=== PATIENT | female | born 1960 | race Two or more races ===

== ENCOUNTER 2018-06-13 11:39 | Emergency (ER) | payer MEDICAID ==
[~2018-06-13] VITALS: Ht 165.1 cm; Wt 71.2 kg
[2018-06-13] MEDS ORDERED: BENAZEPRIL HCL10 MG ORAL (11:57)
[2018-06-13] MEDS ORDERED: Simethicone 80mg tab ORAL ONE (12:15)
[2018-06-13] MEDS ORDERED: Acetaminophen 500mg (ES) tab ORAL ONE (12:15)
--- NOTE | 2018-06-13 12:20 | Emergency Room Report ---
History of Present Illness General Chief Complaint: Back Pain-No Injury Source: Patient Present Illness HPI 58-year-old female patient presents to ER complaining of left-sided lower back pain that radiates to her suprapubic abdomen and left thigh for the past 2 weeks. Reports similar symptoms in the past for the past 3 years, states has had previous workup and x-rays done, believes the results were negative however never got told the results from her physician at that time. Reports frequency and urgency and mild dysuria during this time. Denies hematuria, vaginal discharge. Denies acute injury or trauma. Denies bowel or bladder incontinence. denies blood in stool or diarrhea, states last bowel movement today, reports able to pass flatus. Reports of suprapubic discomfort feels like a "fullness", reports may be related to gas. reports took Tylenol at 2 AM for pain, states has not taken any medication since that time. Denies vomiting or diarrhea. Denies fever, chest pain, shortness of breath. Denies history of cancer. Denies history of kidney stones or drug use. denies history of diabetes. Allergies: Coded Allergies: IBUPROFEN (Verified Allergy, Unknown, 06/13/18) SULFAMETHOXAZOLE (Verified Allergy, Unknown, 06/13/18) TRIMETHOPRIM (Verified Allergy, Unknown, 06/13/18) Patient History Past Medical History: see triage record Reviewed Nursing Documentation: PMH: Agreed; PSxH: Agreed Nursing Documentation-PMH Past Medical History: No Stated History Review of Systems All Other Systems: negative except mentioned in HPI Physical Exam Vital Signs Date Time Temp Pulse Resp B/P (MAP) Pulse Ox O2 Delivery O2 Flow Rate FiO2 06/13/18 11:52 97.9 73 18 140/79 98 Room Air Sp02 EP Interpretation: reviewed, normal General Appearance: well appearing, no apparent distress, alert, GCS 15, non- toxic Head: normocephalic, atraumatic Eyes: bilateral eye normal inspection, bilateral eye PERRL ENT: hearing grossly normal, normal pharynx, no angioedema, normal voice, uvula midline, moist mucus membranes Neck: full range of motion Respiratory: lungs clear, normal breath sounds, no rhonchi, no respiratory distress, no accessory muscle use, no wheezing, speaking full sentences Cardiovascular #1: regular rate, rhythm, no edema Gastrointestinal: normal bowel sounds, non tender, soft, no mass, non-distended , no guarding, no pulsatile mass, no rebound, other - negative Melissa, negative Rovsing, negative obturator, negative heel strike Genitourinary: no CVA tenderness Musculoskeletal: back normal - no bony tenderness, no spinous process tenderness, digits/nails normal, gait/station normal, normal range of motion, non-tender, no calf tenderness, Stan's Sign negative Neurologic: alert, oriented x3, responsive, motor strength/tone normal, SLR negative, sensory intact, cerebellar normal, normal gait, speech normal Psychiatric: mood/affect normal Skin: no rash Medical Decision Making PA Attestation Dr. Paniagua is my supervising Physician whom patient management has been discussed with. Diagnostic Impression: Primary Impression: Constipation Additional Impressions: Lumbago Urinary tract infection ER Course Pt. presents to the ED c/o left lumbosacral pain radiating to her left side and suprapubic area. Ddx considered but are not limited to sprain, strain, UTI, constipation, enteritis, cauda equina, SBO, nephrolithiasis, diverticulitis, DJD. negative straight leg raise, negative acute injury or trauma, denies bowel or bladder incontinence, low suspicion for cauda equina. No abdominal tenderness to palpation, negative Rovsing, negative heel strike, negative obturator, low suspicion for appendicitis. patient resting comfortably in the bed, writhing in pain, denies hematuria, denies vomiting, low suspicion for nephrolithiasis, does not require CT at this time. Vital signs: are WNL, pt. is afebrile ER COURSE: Provide patient with Tylenol, lidocaine patch, and simethicone. physical exam benign, patient indicating left lumbosacral pain, no tenderness to palpation, negative straight leg raise. KUB xray shows stool in vault, normal gas pattern per the preliminary reading. likely constipation symptoms, will provide patient with lactulose at discharge. Advised on high-fiber diet and drink plenty of fluids. Lumbar spine x-ray shows no acute fracture, degenerative changes noted per the preliminary reading. Advised patient to follow with PCP for MRI and referral to Ortho/physical therapy/pain management. Provided with contact information for orthopedic urgent care.advised on rest, ice, heat. UA shows 2+ blood, some bacteria, patient is symptomatic, will provide patient with antibiotics to cover for possible urinary tract infection. Follow-up with specialist. drink plenty of fluids. negative protein in UA, most patient for kidney infection requiring CT or labs. Follow with primary care provider. ER precautions given. DISCHARGE: At this time pt is stable for d/c to home. Patient is resting comfortably, in no acute distress, nontoxic appearing, talking without difficulty. Patient to take medications as instructed Will provide with patient care instructions and any necessary prescriptions. Care plan and follow-up instructions provided. Patient instructed to follow-up with primary care provider in 3 - 5 days. Patient questions asked and answered. Patient reports understanding and agreement to treatment plan. ER precautions given. Patient instructed to return to ER immediately for any new or worsening of symptoms including but not limited to increasing SOB, persistent fever, chest pain, intractable vomiting. - Please note that this Emergency Department Report was dictated using [employer]ball[employer] maker technology software, occasionally this can lead to erroneous entry secondary to interpretation by the dictation equipment. Labs Test 06/13/18 12:03 Urine Color Yellow Urine Appearance Clear Urine pH 5 (4.5-8.0) Urine Specific [place] 1.020 (1.005-1.035) Urine Protein Negative (NEGATIVE) Urine Glucose (UA) Negative (NEGATIVE) Urine Ketones Negative (NEGATIVE) Urine Blood 2+ (NEGATIVE) Urine Nitrite Negative (NEGATIVE) Urine Bilirubin Negative (NEGATIVE) Urine Urobilinogen Normal MG/DL (0.0-1.0) Urine Leukocyte Esterase 1+ (NEGATIVE) Urine RBC 0-2 /HPF (0 - 2) Urine WBC 2-4 /HPF (0 - 2) Urine Squamous Epithelial Cells Occasional /LPF Urine Bacteria Occasional /HPF (NONE) Other X-Ray Diagnostic Results Other X-Ray Diagnostic Results #1: X-Ray ordered: lumbar spine # of Views/Limited Vs Complete: 3 View Indication: Pain EP Interpretation: Yes PA Xray: Interpretation reviewed, by supervising MD, and agrees with findings. Interpretation: no dislocation, no soft tissue swelling, no fractures, other - degenerative changes Impression: No acute disease KAYLEN Mason PA-C Other X-Ray Diagnostic Results #2: X-Ray ordered: KUB # of Views/Limited Vs Complete: 1 View Indication: Pain EP Interpretation: Yes PA Xray: Interpretation reviewed, by supervising MD, and agrees with findings. Interpretation: no dislocation, no soft tissue swelling, no fractures, nonspecific bowel gas, other - stool Impression: No acute disease PA Scribe Text Salvador Mason PA-C Last Vital Signs Date Time Temp Pulse Resp B/P (MAP) Pulse Ox O2 Delivery O2 Flow Rate FiO2 06/13/18 11:52 97.9 73 18 140/79 98 Room Air Status: improved Disposition: HOME, SELF-CARE Condition: Stable Scripts Lactulose (LACTULOSE*) 20 Gm/30 Ml Solution 30 ML ORAL DAILY, #90 ML 0 Refills Prov: Freddie Mason 06/13/18 Acetaminophen* (TYLENOL EXTRA STRENGTH*) 500 Mg Tablet 500 MG ORAL Q8H PRN for Prn Headache/Temp > 101, #30 TAB 0 Refills Prov: Freddie Mason 06/13/18 Lidocaine (Lidocaine) 1 Each Adh..patch 5 % TP DAILY, #7 PATCH Prov: Freddie Mason 06/13/18 Cephalexin* (KEFLEX*) 500 Mg Capsule 500 MG ORAL EVERY 12 HOURS, #14 CAP 0 Refills Prov: Freddie Mason 06/13/18 Patient Instructions: Back Pain, Adult, Constipation, Adult, [id number], Urinary Tract Infection, [id number] Additional Instructions: Followup with primary care provider and discuss need for further MRI due to chronic back pain symptoms and pain radiating down leg. Discuss need for further labs and referral to ortho/GI//claim processing specialist with PCP. Advised patient high-fiber diet. Drink plenty of fluids. Take medications as directed. Patient questions asked and answered. ER precautions given, patient instructed to return to ER immediately for any new or worsening of symptoms. Freddie Mason Jun 13, 2018 12:20
[2018-06-13 12:40] LABS: APPEARANCE,URINE CLEAR; BILIRUBIN, URINE NEGATIVE (NEGATIVE); COLOR,URINE YELLOW; GLUCOSE, URINE (UA) NEGATIVE (NEGATIVE); KETONES,URINE NEGATIVE (NEGATIVE); LEUKOCYTE ESTERASE ,URINE 1+ (NEGATIVE); NITRITE,URINE NEGATIVE (NEGATIVE); PH,URINE 5 (4.5-8.0); PROTEIN,URINE NEGATIVE (NEGATIVE); UROBILINOGEN,URINE NORMAL MG/DL (0.0-1.0)
[2018-06-13] MEDS ORDERED: LACTULOSE20 GM/301 ORAL (13:22)
[2018-06-13] MEDS ORDERED: LIDOCAINE700 M1 TP (13:22)
[2018-06-13] MEDS ORDERED: CEPHALEXIN500 MG ORAL (13:22)
[2018-06-13] MEDS ORDERED: TYLENOL EXTRA500 MG ORAL (13:22)
[2018-06-13 13:45] VITALS: BP 140/79
--- NOTE | 2018-06-13 14:36 | Diagnostic Imaging Report ---
Indication: Lower back pain Technique: 3 views of the lumbar spine Comparison: None Findings: Unusual bony protuberance projects anterior to the first coccygeal segment. There is very mild lumbar scoliotic deformity. The bony alignment is otherwise unremarkable. There is transitional thoracolumbar anatomy with small ribs arising from what otherwise appears to be L1. No acute fractures. No dislocations. Vertebral body heights are preserved. Impression: No acute bony trauma Minimal scoliotic deformity Unusual protuberance projecting anteriorly to the first coccygeal segment. This could represent a developmental anomaly, or could be an artifact of positioning, although patient appears to be well positioned
--- NOTE | 2018-06-13 14:37 | Diagnostic Imaging Report ---
Indication: Abdominal pain Technique: Supine view of the abdomen Comparison: none Findings: Unremarkable bowel gas pattern. No unusual masses or calcifications. The bones are unremarkable Impression: No acute process
== END 2018-06-13 13:47 | disposition home or self-care (01) ==
LOC: EMR 12:21
DX: N39.0 Urinary tract infection, site not specified (principal); K59.00 Constipation, unspecified; M79.652 Pain in left thigh; M54.5 Low back pain; Z88.6 Allergy status to analgesic agent; Z88.2 Allergy status to sulfonamides; Z88.8 Allergy status to other drugs, medicaments and biological substances
CPT/HCPCS: 72020; 74018; 81003; 99284

== ENCOUNTER 2020-01-01 19:57 | Emergency (ER) | payer MEDICAID ==
[~2020-01-01] VITALS: Ht 165.1 cm; Wt 71.7 kg
[~2020-01-01 19:57] MED LIST: BENAZEPRIL HCL10 MG ORAL; CEPHALEXIN500 MG ORAL; LACTULOSE20 GM/301 ORAL; LIDOCAINE700 M1 TP; TYLENOL EXTRA500 MG ORAL
[2020-01-01] MEDS ORDERED: LISINOPRIL30 MG ORAL (20:07)
[2020-01-01] MEDS ORDERED: HYDROCHLOROTHIA25 G1 MISC (20:07)
[2020-01-01 20:08] VITALS: BP 149/94
[2020-01-01 20:29] LABS: APPEARANCE,URINE CLEAR; BILIRUBIN, URINE NEGATIVE (NEGATIVE); GLUCOSE, URINE (UA) NEGATIVE (NEGATIVE); KETONES,URINE NEGATIVE (NEGATIVE); LEUKOCYTE ESTERASE ,URINE NEGATIVE (NEGATIVE); PH,URINE 6.5 (4.5-8.0); PROTEIN,URINE NEGATIVE (NEGATIVE); UROBILINOGEN,URINE NORMAL MG/DL (0.0-1.0)
[2020-01-01 20:31] LABS: COLOR,URINE PALE YELLOW; NITRITE,URINE NEGATIVE (NEGATIVE)
--- NOTE | 2020-01-01 20:39 | Emergency Room Report ---
History of Present Illness General Chief Complaint: Female Urogenital Problems Source: Patient (Abdifatah Jean-Baptiste MD) Present Illness HPI Disclaimer: Please note that this report is being documented using [employer] technology. This can lead to erroneous entry secondary to incorrect interpretation by the dictating instrument. HPI: 59-year-old female history of hypertension presents for evaluation of pelvic and flank pain. Symptoms present for approximately 1 week. She was seen at [facility] 4 days ago and prescribed ciprofloxacin for urinary tract infection. She finished a 3-day course but feels no better. She reports burning sensation, frequency and urgency. She reports bilateral flank pain and describes it as "hot. She denies fever or chills, vomiting, diarrhea. Denies vaginal bleeding or vaginal discharge. She states she has had this pain intermittently in the past. Started several months ago. She is sexually active with her . 2 months ago she had some vaginal discharge which was clear and malodorous but this resolved. PMH: Hypertension Allergies: Ibuprofen, Bactrim Social Hx: Reviewed (Abdifatah Jean-Baptiste MD) Allergies: Coded Allergies: IBUPROFEN (Verified Allergy, Unknown, 06/13/18) SULFAMETHOXAZOLE (Verified Allergy, Unknown, 06/13/18) TRIMETHOPRIM (Verified Allergy, Unknown, 06/13/18) COVID-19 Screening Contact w/high risk pt: No Recent Travel to affected area: No Experienced COVID-19 symptoms?: No COVID-19 Testing performed SOFA COVER INSPECTOR: No (Abdifatah Jean-Baptiste MD) Patient History Last Menstrual Period: NA Now: No : 4 Para: 4 (Abdifatah Jean-Baptiste MD) Nursing Documentation-PMH Hx Hypertension: Yes (Abdifatah Jean-Baptiste MD) Review of Systems All Other Systems: negative except mentioned in HPI (Abdifatah Jean-Baptiste MD) Physical Exam Vital Signs Date Time Temp Pulse Resp B/P (MAP) Pulse Ox O2 Delivery O2 Flow Rate FiO2 01/01/20 19:58 98.4 84 18 149/94 (112) 96 Room Air General: Awake and alert, no acute distress HEENT: NC/AT. EOMI. Cardiovascular: RRR. S1 and S2 normal. No murmur appreciated Resp: Normal work of breathing. No cough, wheezing or crackles appreciated Abdomen: Abdomen is soft, nondistended. Suprapubic tenderness with palpation. No palpable masses. : Skin: Intact. No abrasions, laceration or rash over the exposed skin MSK: Normal tone and bulk. Moving all extremities. No obvious deformity. Neuro: Awake and alert. Mentating appropriately. (Abdifatah Jean-Baptiste MD) Medical Decision Making Diagnostic Impression: Primary Impression: PID (acute pelvic inflammatory disease) ER Course 59-year-old female presents for evaluation of pelvic pain. Differential includes not limited to UTI, pyelonephritis, nephrolithiasis, PID, cervicitis, endometriosis, fibroids, mass. Urinalysis does not show evidence of urinary tract infection. Wet mount does not show clue cells, yeast or trichomonas. Many WBCs are seen. Concerning for PID. Labs and CT are ordered. Patient be signed out to oncoming physician pending CT results and ultimate disposition. Laboratory Tests Test 01/01/20 20:10 01/01/20 21:10 01/01/20 21:30 Urine Color Pale yellow Urine Appearance Clear Urine pH 6.5 (4.5-8.0) Urine Specific [place] 1.010 (1.005-1.035) Urine Protein Negative (NEGATIVE) Urine Glucose (UA) Negative (NEGATIVE) Urine Ketones Negative (NEGATIVE) Urine Blood Negative (NEGATIVE) Urine Nitrite Negative (NEGATIVE) Urine Bilirubin Negative (NEGATIVE) Urine Urobilinogen Normal MG/DL (0.0-1.0) Urine Leukocyte Esterase Negative (NEGATIVE) Urine HCG, Qualitative Negative (NEGATIVE) Neisseria gonorrhoeae RNA Pending White Blood Count 8.5 K/UL (4.8-10.8) Red Blood Count 4.56 M/UL (4.20-5.40) Hemoglobin 13.1 G/DL (12.0-16.0) Hematocrit 40.7 % (37.0-47.0) Mean Corpuscular Volume 89 FL (80-99) Mean Corpuscular Hemoglobin 28.7 PG (27.0-31.0) Mean Corpuscular Hemoglobin Concent 32.2 G/DL (32.0-36.0) Red Cell Distribution Width 13.4 % (11.6-14.8) Platelet Count 303 K/UL (150-450) Mean Platelet Volume 7.0 FL (6.5-10.1) Neutrophils (%) (Auto) 54.8 % (45.0-75.0) Lymphocytes (%) (Auto) 32.8 % (20.0-45.0) Monocytes (%) (Auto) 9.8 % (1.0-10.0) Eosinophils (%) (Auto) 1.4 % (0.0-3.0) Basophils (%) (Auto) 1.2 % (0.0-2.0) Sodium Level 134 MMOL/L (136-145) L Potassium Level 3.2 MMOL/L (3.5-5.1) L Chloride Level 97 MMOL/L (98-107) L Carbon Dioxide Level 29 MMOL/L (21-32) Anion Gap 8 mmol/L (5-15) Blood Urea Nitrogen 14 mg/dL (7-18) Creatinine 0.9 MG/DL (0.55-1.30) Estimated Glomerular Filtration Rate > 60 mL/min (>60) Glucose Level 112 MG/DL (74-106) H Calcium Level 9.2 MG/DL (8.5-10.1) Human Chorionic Gonadotropin, Qual Negative (NEGATIVE) Microbiology Date/Time Source Procedure Growth Status 01/01/20 21:05 Vaginal Wet Prep - Final Complete (Abdifatah Jean-Baptiste MD) ER Course Patient presents with abdominal/pelvic pain. Po exam show bacteria and discharge. Urinalysis negative. CT scan negative. This patient was signed out to me. Will discharge home with treatment for PID. (Azeem Lee MD) CT/MRI/US Diagnostic Results CT/MRI/US Diagnostic Results : Imaging Test Ordered: CT abdomen pelvis Impression Negative per radiologist (Azeem Lee MD) Last Vital Signs Date Time Temp Pulse Resp B/P (MAP) Pulse Ox O2 Delivery O2 Flow Rate FiO2 01/01/20 20:08 98.4 84 18 149/94 96 Room Air (Abdifatah Jean-Baptiste MD) Status: improved (Azeem Lee MD) Disposition: HOME, SELF-CARE Condition: Stable Scripts Hydrocodone Bit/Acetaminophen 5-325* (NORCO 5-325 TABLET*) 1 Each Tablet 1 TAB ORAL Q6H PRN for FOR PAIN, #10 TAB 0 Refills Prov: Azeem Lee MD 01/01/20 Doxycycline Monohydrate* (DOXYCYCLINE MONOHYDRATE*) 100 Mg Capsule 100 MG ORAL Q12H, #28 CAP 0 Refills Prov: Azeem Lee MD 01/01/20 Additional Instructions: Follow-up with your doctor in 7 days. Return if symptoms worsen. You may need referral to see a dampproofer. Abdifatah Jean-Baptiste MD Jan 01, 2020 20:39 Azeem Lee MD Jan 01, 2020 23:48
[2020-01-01] MEDS ORDERED: Omnipaque-300 100ml vial INJ PRN (20:45)
[2020-01-01 22:00] VITALS: BP 138/86
[2020-01-01 22:22] LABS: BASOPHILS % (AUTO) 1.2 % (0.0-2.0); EOSINOPHILS % (AUTO) 1.4 % (0.0-3.0); HEMATOCRIT 40.7 % (37.0-47.0); HEMOGLOBIN 13.1 G/DL (12.0-16.0); LYMPHOCYTES % (AUTO) 32.8 % (20.0-45.0); MEAN CORPUSCULAR VOLUME 89 FL (80-99); MONOCYTES % (AUTO) 9.8 % (1.0-10.0); NEUTROPHILS % (AUTO) 54.8 % (45.0-75.0); PLATELET COUNT 303 K/UL (150-450); RED BLOOD COUNT 4.56 M/UL (4.20-5.40); RED CELL DISTRIBUTION WIDTH 13.4 % (11.6-14.8); WHITE BLOOD COUNT 8.5 K/UL (4.8-10.8)
[2020-01-01] MEDS ORDERED: cefTRIAXone 1 GM in NS 55 ML IVPB ONE (22:30)
[2020-01-01 22:41] LABS: ANION GAP 8 mmol/L (5-15); BLOOD UREA NITROGEN 14 mg/dL (7-18); CALCIUM 9.2 MG/DL (8.5-10.1); CARBON DIOXIDE 29 MMOL/L (21-32); CHLORIDE 97 MMOL/L (98-107); CREATININE 0.9 MG/DL (0.55-1.30); POTASSIUM 3.2 MMOL/L (3.5-5.1); SODIUM 134 MMOL/L (136-145)
[2020-01-01] MEDS ORDERED: Morphine Sulfate 4mg/ml Inj (IV USE ONLY) IVP ONE (22:45)
--- NOTE | 2020-01-01 23:21 | Diagnostic Imaging Report ---
EXAM: CT Abdomen and Pelvis With Intravenous Contrast CLINICAL HISTORY: ABD PAIN TECHNIQUE: Axial computed tomography images of the abdomen and pelvis with intravenous contrast. CTDI is 6 mGy and DLP is 285 mGy-cm. One or more of the following dose reduction techniques were used: automated exposure control, adjustment of the mA and/or kV according to patient size, use of iterative reconstruction technique. Coronal and sagittal reformatted images were created and reviewed. COMPARISON: No relevant prior studies available. FINDINGS: Lung bases: Unremarkable. No mass. No consolidation. ABDOMEN: Liver: Unremarkable. No mass. Gallbladder and bile ducts: Unremarkable. No calcified stones. No ductal dilation. Pancreas: Unremarkable. No mass. No ductal dilation. Spleen: Unremarkable. No splenomegaly. Adrenals: Unremarkable. No mass. Kidneys and ureters: Benign left renal subcentimeter cyst requiring no additional follow-up. Otherwise unremarkable kidneys. No hydronephrosis. Stomach and bowel: Unremarkable. No obstruction. No mucosal thickening. PELVIS: Appendix: No findings to suggest acute appendicitis. Bladder: Unremarkable. No mass. Reproductive: Unremarkable as visualized. ABDOMEN and PELVIS: Intraperitoneal space: Unremarkable. No free air. No significant fluid collection. Bones/joints: Osteopenia. No acute fracture. No dislocation. Soft tissues: Unremarkable. Vasculature: Unremarkable. No abdominal aortic aneurysm. Lymph nodes: Unremarkable. No enlarged lymph nodes. IMPRESSION: No acute abnormality definitively identified to account for patient presentation.
[2020-01-01 23:45] VITALS: BP 139/79
[2020-01-01] MEDS ORDERED: DOXYCYCLINE MO100 MG ORAL (23:48)
[2020-01-01] MEDS ORDERED: NORCO 5-325 TA1 EAC1 ORAL (23:49)
[2020-01-02] VITALS: BP 139/79
== END 2020-01-02 | disposition home or self-care (01) ==
LOC: EMR 20:59
DX: N73.9 Female pelvic inflammatory disease, unspecified (principal); I10 Essential (primary) hypertension; Z88.6 Allergy status to analgesic agent; Z88.2 Allergy status to sulfonamides
CPT/HCPCS: 36415; 74177; 80048; 81003; 81025; 84703; 85025; 87210; 87590; 96365; 96375; J0696; J2270; Q9967; Z7502; 99284